=== PATIENT | female | born 1955 | race Caucasian/White ===

== ENCOUNTER 2020-09-14 08:48 | Outpatient (RCR) | payer MEDICARE, MEDICAID, OTHER, SELFPAY | END 2020-10-16 15:06 | disposition home or self-care (01) | LOC: HO.WCC 08:48 | PROVIDERS: PCP Nurse Practitioner Family; Visit Provider Physician Assistant | DX: I87.311 Chronic venous hypertension (idiopathic) with ulcer of right lower extremity (principal); L97.812 Non-pressure chronic ulcer of other part of right lower leg with fat layer exposed; E11.65 Type 2 diabetes mellitus with hyperglycemia; E11.40 Type 2 diabetes mellitus with diabetic neuropathy, unspecified; E11.51 Type 2 diabetes mellitus with diabetic peripheral angiopathy without gangrene; I10 Essential (primary) hypertension; Z79.84 Long term (current) use of oral hypoglycemic drugs; Z86.718 Personal history of other venous thrombosis and embolism | CPT/HCPCS: 29580; 99211; 99212 ==